=== PATIENT | female | born 1980 | race Caucasian/White ===

== ENCOUNTER 2017-11-27 17:10 | Emergency (ER) | payer OTHER ==
[2017-11-27 17:22] VITALS: TEMP 97.8
[2017-11-27] MEDS ORDERED: Sodium Chloride 0.9% 1,000 ML IV ONE (18:56)
[2017-11-27 19:16] LABS: BASO # 0.1 K/uL (0.0-0.2); BASO % 0.6 % (0.0-2.0); EOS # 0.2 K/uL (0.0-0.7); EOS % 1.2 % (0.0-4.0); LYMPH # 2.3 K/uL (1.0-4.3); LYMPH % 12.1 % (20.0-40.0); MEAN CELL VOLUME 88.2 fL (81.0-99.0); MEAN CORPUSCULAR HEMOGLOBIN 30.4 pg (27.0-31.0); MEAN CORPUSCULAR HGB CONC 34.5 g/dL (33.0-37.0); MEAN PLATELET VOLUME 8.9 fL (7.2-11.7); MONO # 0.9 K/uL (0.0-0.8); MONO % 4.7 % (0.0-10.0); NEUT # 15.4 K/uL (1.8-7.0); NEUT % 81.4 % (50.0-75.0); RBC 4.6 Mil/uL (3.80-5.20); WHITE BLOOD COUNT 18.9 K/uL (4.8-10.8)
[2017-11-27 19:25] LABS: SQUAMOUS EPITHIAL 7 /hpf (0-5); URINE BACTERIA OCC (<OCC); URINE BILIRUBIN NEGATIVE (NEGATIVE); URINE BLOOD 3+ (NEGATIVE); URINE CLARITY Hazy (Clear); URINE COLOR Yellow (YELLOW); URINE GLUCOSE (UA) NORMAL (Normal); URINE LEUKOCYTE ESTERASE NEG Leu/uL (Negative); URINE PROTEIN NEGATIVE (NEGATIVE); URINE UROBILINOGEN NORMAL mg/dL (0.2-1.0)
[2017-11-27 19:28] LABS: ALB/GLOB RATIO 1.3 (1.0-2.1); ALBUMIN 4.6 g/dL (3.5-5.0); ALT/SGPT 15 U/L (9-52); AST/SGOT 23 U/L (14-36); BLOOD UREA NITROGEN 8 mg/dL (7-17); CALCIUM 9.2 mg/dl (8.6-10.4); GFR AFRICAN-AMERICAN > 60; GFR NON-AFRICAN AMERICAN > 60; LIPASE 107 U/L (23-300)
--- NOTE | 2017-11-27 21:27 | C.PDOC ---
History Of Present Illness 36 y/o female currently presents to ED with c/o crampy vaginal bleeding for 1 day. Patient states she had an Ultrasound at OBGYN office that was normal. Patient denies nausea, vomiting, vaginal discharge, dysuria or any other complaints at this time. LMP 09/15/17 Chief Complaint (Nursing): Female Genitourinary History Per: Patient History/Exam Limitations: no limitations Onset/Duration Of Symptoms: Days Current Symptoms Are (Timing): Still Present Quality Of Discomfort: Cramping Past Medical History Reviewed: Historical Data, Nursing Documentation, Vital Signs Vital Signs: Last Vital Signs Temp 97.8 F 11/27/17 17:18 Pulse 78 11/27/17 22:54 Resp 16 11/27/17 22:54 BP 103/68 11/27/17 22:54 Pulse Ox 98 11/27/17 22:54 - Medical History PMH: No Chronic Diseases Surgical History: No Surg Hx Family History: States: No Known Family Hx - Social History Hx Alcohol Use: No Hx Substance Use: No - Immunization History Hx Tetanus Toxoid Vaccination: No Hx Influenza Vaccination: No Hx Pneumococcal Vaccination: No Review Of Systems Constitutional: Negative for: Fever, Chills Gastrointestinal: Positive for: Abdominal Pain. Negative for: Nausea, Vomiting Genitourinary: Positive for: Vaginal Bleeding. Negative for: Dysuria, Vaginal Discharge Skin: Negative for: Rash Physical Exam - Physical Exam Appears: Non-toxic, No Acute Distress Skin: Warm, Dry, No Rash Head: Atraumatic, Normacephalic Eye(s): bilateral: Normal Inspection Oral Mucosa: Moist Neck: Normal ROM, Supple Cardiovascular: Rhythm Regular Respiratory: Normal Breath Sounds, No Rales, No Rhonchi, No Wheezing Gastrointestinal/Abdominal: Soft, No Tenderness, No Guarding, No Rebound Neurological/Psych: Oriented x3, Normal Speech, Normal Cognition ED Course And Treatment - Laboratory Results Result Diagrams: 11/27/17 19:09 11/27/17 19:09 O2 Sat by Pulse Oximetry: 100 (RA) Pulse Ox Interpretation: Normal Disposition - Disposition Referrals: [facility], [Non-Staff] - Disposition: HOME/ ROUTINE Disposition Time: 10:30 Condition: GOOD Additional Instructions: CAMI WOODRUFF, thank you for letting us take care of you today. Your provider was Gilles Ellis DO and you were treated for 10 WKS PREG/ BLEEDING. The emergency medical care you received today was directed at your acute symptoms. If you were prescribed any medication, please fill it and take as directed. It may take several days for your symptoms to resolve. Return to the Emergency Department if your symptoms worsen, do not improve, or if you have any other problems. Please contact your doctor or call one of the physicians/clinics you have been referred to that are listed on the Patient Visit Information form that is included in your discharge packet. Bring any paperwork you were given at discharge with you along with any medications you are taking to your follow up visit. Our treatment cannot replace ongoing medical care by a primary care provider outside of the emergency department. Thank you for allowing the [facility] team to be part of your care today. Follow up with your [employer] doctor tomorrow as scheduled. Instructions: Bleeding With (DC) Forms: Soft Tissue Regeneration ([place]) - Clinical Impression Clinical Impression: Vaginal bleeding during - Scribe Statement The provider has reviewed the documentation as recorded by the Sooibkike Magaña All medical record entries made by the Sooibkike were at my direction and personally dictated by me. I have reviewed the chart and agree that the record accurately reflects my personal performance of the history, physical exam, medical decision making, and the department course for this patient. I have also personally directed, reviewed, and agree with the discharge instructions and disposition.
--- NOTE | 2017-11-27 22:25 | US ---
EXAM: US First Trimester, Transabdominal EXAM DATE/TIME: 11/27/2017 6:57 PM CLINICAL HISTORY: 36 years old, female; Signs and symptoms; Lmp or gestational age (in weeks): [id number]; Antepartum complications; Bleeding; ; Additional info: Vaginal bleeding TECHNIQUE: Real-time transabdominal obstetrical ultrasound of the maternal pelvis and a first trimester with image documentation. COMPARISON: No relevant prior studies available. FINDINGS: Uterus: Measures 10.8 x 6 x 8.1 cm. Single intrauterine gestation identified. pole and yolk sac are seen. Estimated gestational age is 10 weeks, 6 days, based on the crown rump length. Note that the anatomy, amniotic fluid volume, and placental position cannot be evaluated at this early gestational age. heart motion visualized, at 158 beats per minute. Right ovary: Within normal limits in appearance. Measures 2.3 x 1.6 x 1.9 cm. Flow seen in the right ovary on color and Doppler imaging, with no evidence of torsion. Left ovary: Within normal limits in appearance. Measures 3.7 x 3.0 x 3.6 cm. Flow seen in the left ovary on color and Doppler imaging, with no evidence of torsion. Free fluid: None seen. IMPRESSION: 10 week, 6 day intrauterine with heart motion. No acute abnormality identified.
--- NOTE | 2017-11-27 22:29 | US ---
EXAM: US Abdomen Complete EXAM DATE/TIME: 11/27/2017 7:44 PM CLINICAL HISTORY: 36 years old, female; Pain; Abdominal pain; Other: Lower abd pain; ; Additional info: Lower abdominal pain TECHNIQUE: Real-time ultrasound of the abdomen (complete) with image documentation. COMPARISON: No relevant prior studies available. FINDINGS: Gallbladder: Within normal limits in appearance, without evidence of gallstones, significant gallbladder wall thickening, or pericholecystic fluid. Reportedly negative sonographic Rodriguez's sign. Common bile duct: Does not appear abnormally dilated, measuring less than 6 mm in diameter. Liver: Within normal limits in appearance. Measures 12.7 cm in length. Normal flow seen in the main portal vein on color and Doppler imaging. Pancreas: Imaged portions appear unremarkable. Right kidney: Within normal limits in appearance. Measures 9.7 cm in length. No evidence of hydronephrosis. Left kidney: Within normal limits in appearance. Measures 10.8 cm in length. No evidence of hydronephrosis. Spleen: Within normal limits in appearance. Measures 8.3 cm in length. Aorta: Imaged portions appear unremarkable. IVC: Imaged portions appear unremarkable. IMPRESSION: No evidence of gallstones or other significant abnormality. Please see above for a full description of findings.
[2017-11-27 22:55] VITALS: BP 103/68; PULSE 78; RESP 16
[2017-11-28 00:45] VITALS: O2SAT 100
== END 2017-11-27 22:54 | disposition home or self-care (01) ==
LOC: C.ER 17:10
DX: O46.91 Antepartum hemorrhage, unspecified, first trimester (principal); Z3A.10 10 weeks gestation of pregnancy
CPT/HCPCS: 76700; 76801; 80053; 81001; 83690; 84702; 85025; 96360; 99284; J7030